=== PATIENT | female | born 1960 | race Hispanic/Latino ===

== ENCOUNTER 2017-12-14 06:04 | Inpatient (IN) | payer BC ==
--- NOTE | 2017-12-14 06:48 | ED PDOC ---
Arrival/HPI <Rafa Rodriguez - Last Filed: 12/14/17 06:46> - History of Present Illness Time/Duration: Prior to Arrival, 1 week <Dario Kent - Last Filed: 12/14/17 14:31> - General Chief Complaint: Shortness Of Breath Time Seen by Provider: 12/14/17 06:21 - History of Present Illness Narrative History of Present Illness (Text): 12/14/17 06:46 pt present c/o sob and asthma , seen by pmd in the week tx with steroid shot and pills, not getting better, no fver or chills or cp (Rafa Rodriguez) 12/14/17 14:20 Patient endorsed to me from Dr. Rodriguez at 0700. I reexamined patient at 0715 with daughter present. Patient complaints of cough and shortness of breath for one week. No improvement after inhalers or recently prescribed steroids and antibitoics. She reports generalized "lung pain" but no pleuritic pain. No leg pain or swelling. Reports shortness of breath with exertion. She denies any hemoptysis. Reports nasal congestion and headaches. No unsteadiness. No numbness or tingling. 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) - Pulmonary Hx Asthma: Yes - Endocrine/Metabolic Hx Hypothyroidism: Yes - Musculoskeletal/Rheumatological Hx Falls: No - Psychiatric Hx Depression: No Hx Emotional Abuse: No Hx Physical Abuse: No Hx Substance Use: No - Surgical History Hx Section: Yes - Suicidal Assessment Feels Threatened In Home Enviroment: No <Rafa Rodriguez - Last Filed: 12/14/17 06:46> Family/Social History - Physician Review Nursing Documentation Reviewed: Yes Family/Social History: No Known Family HX Smoking Status: Never Smoked Hx Alcohol Use: No Hx Substance Use: No Hx Substance Use Treatment: No <Rafa Rodriguez - Last Filed: 12/14/17 06:46> Family/Social History: CAD/[place] <Dario Kent - Last Filed: 12/14/17 14:31> Allergies/Home Meds <Rafa Rodriguez - Last Filed: 12/14/17 06:46> <Dario Kent - Last Filed: 12/14/17 14:31> Allergies/Adverse Reactions: Allergies Penicillins Allergy (Verified 12/14/17 06:30) RASH Home Medications: Home Meds Medication Instructions Recorded Confirmed Albuterol Sulfate [Proair Hfa] 0.09 mg IH Q4 PRN 07/19/13 07/19/13 Atorvastatin [Lipitor] 10 mg PO DAILY 12/14/17 12/14/17 Review of Systems - Physician Review All systems were reviewed & negative as marked: Yes - Review of Systems Constitutional: Normal Eyes: Normal ENT: Normal Respiratory: SOB, Wheezing Cardiovascular: absent: Chest Pain Gastrointestinal: Normal Genitourinary Female: Normal Musculoskeletal: Normal Skin: Normal Neurological: Normal Endocrine: Normal Hemo/Lymphatic: Normal Psychiatric: Normal <MichaelRafa - Last Filed: 12/14/17 06:46> - Review of Systems ENT: Rhinorrhea, Epistaxis, Sinus Congestion Cardiovascular: UMAÑA. absent: Palpitations, Calf Pain Gastrointestinal: absent: Appetite Changes Musculoskeletal: absent: Back Pain Neurological: absent: Dizziness, Focal Weakness Hemo/Lymphatic: absent: Easy Bleeding Psychiatric: absent: Depression <Dario Kent - Last Filed: 12/14/17 14:31> Physical Exam Vital Signs Reviewed: Yes Temperature: Afebrile Blood Pressure: Normal Pulse: Regular Respiratory Rate: Normal Appearance: Positive for: Well-Appearing, Non-Toxic, Comfortable Pain Distress: None Mental Status: Positive for: Alert and Oriented X 3 - Systems Exam Head: Present: Atraumatic, Normocephalic Pupils: Present: PERRL Extroacular Muscles: Present: EOMI Conjunctiva: Present: Normal Mouth: Present: Moist Mucous Membranes Neck: Present: Normal Range of Motion Respiratory/Chest: Present: Good Air Exchange, Wheezes. No: Respiratory Distress, Accessory Muscle Use Cardiovascular: Present: Regular Rate and Rhythm, Normal S1, S2. No: Murmurs Abdomen: No: Tenderness, Distention, Peritoneal Signs Back: Present: Normal Inspection Upper Extremity: Present: Normal Inspection. No: Cyanosis, Edema Lower Extremity: Present: Normal Inspection. No: Edema Neurological: Present: GCS=15, CN II-XII Intact, Speech Normal Skin: Present: Warm, Dry, Normal Color. 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 Initial EKG unremarkable. No calf pain or swelling. Nonsmoker. NO long travel or prolonged immobilization. Patient was administered single nebulizer from previous shift and NO wheezing noted on re-exam. She also has some nasal congestion with headache, not worse in life I feel there is a component of sinusitis although no fever or facial edema noted. Ddimer is unremarkable. CXR with no infiltrate of PTX. Initial cardiac enzymes unremarkable. Hypokalemia noted, I feel secondary to nebulizers she has been taking. Oral K ordered. Patient remains dyspneic, although lungs clear and not tachycardic or hypoxic. FOR FAILURE OF OUTPATIENT TREATMENT, patient will be admitted to telemetry observation bed. She reports strong family history of cardiac disease, although denies any known diagnosis for herself. CT chest ordered, there is lung nodule noted. Patient states she is aware of having a lung nodule and was advised to follow- up with repeat CT scan with daughter present. Patient's case d/w Dr. Mejia covering for PMD who accepts admission to Dr. Patel's service. 12/14/17 14:29 (Dario Kent) - Lab Interpretations Lab Results: 12/14/17 08:30 12/14/17 08:30 Lab Results 12/14/17 11:30: Urine Color Yellow, Urine Appearance Clear, Urine pH 6.5, Ur Specific Boykins 1.015, Urine Protein Negative, Urine Glucose (UA) Negative, Urine Ketones Negative, Urine Blood Negative, Urine Nitrate Negative, Urine Bilirubin Negative, Urine Urobilinogen 0.2, Ur Leukocyte Esterase Negative 12/14/17 08:30: Influenza Typ A,B (EIA) Negative for flu a/b 12/14/17 08:30: Sodium 145, Potassium 2.9 L* D, Chloride 104, Carbon Dioxide 25 , Anion Gap 19, BUN 16, Creatinine 0.7, Est GFR ( Amer) > 60, Est GFR ( Non-Af Amer) > 60, Random Glucose 114 H, Calcium 9.1, Total Bilirubin 0.3, AST 24, ALT 36, Alkaline Phosphatase 66, Lactate Dehydrogenase 368, Total Creatine Kinase 24 L, Troponin I < 0.01, NT-Pro-B Natriuret Pep 158, Total Protein 7.4, Albumin 4.5, Globulin 2.9, Albumin/Globulin Ratio 1.6 12/14/17 08:30: PT 1.2 L, INR 1.06, APTT 21.3 L, D-Dimer, Quantitative < 200 12/14/17 08:30: WBC 6.5, RBC 4.57, Hgb 12.9, Hct 37.6, MCV 82.3, MCH 28.2, MCHC 34.3, RDW 13.1, Plt Count 222, MPV 10.2, Gran % 54.9, Lymph % (Auto) 40.1 H, [place] % (Auto) 4.3, Eos % (Auto) 0.5 L, Baso % (Auto) 0.2, Gran # 3.57, Lymph # ( Auto) 2.6, [place] # (Auto) 0.3, Eos # (Auto) 0.0, Baso # (Auto) 0.01 - RAD Interpretation Radiology Orders: 12/14/17 07:24 CHEST PORTABLE [RAD] Stat 12/14/17 10:53 SINUSES W/O CONTRAST [CT] Stat 12/14/17 12:40 CHEST W/O CONTRAST [CT] Stat - EKG Interpretation EKG Interpretation (Text): 12/14/17 14:24 EKG at 0802 normal sinus rhythm rate of [address] elevations (Dario Kent) - Medication Orders Current Medication Orders: Potassium Chloride (K-Dur 20 Meq Er Tab) 20 meq PO STAT STA Stop: 12/14/17 14:31 Discontinued Medications Albuterol/Ipratropium (Duoneb 3 Mg/0.5 Mg (3 Ml) Ud) 3 ml IH Q15M BRAYDEN Stop: 12/14/17 07:31 Last Admin: 12/14/17 07:30 Dose: 3 ml Methylprednisolone (Solu-Medrol) 125 mg IVP STAT STA Stop: 12/14/17 09:12 Last Admin: 12/14/17 10:12 Dose: 125 mg IVP Administration Document 12/14/17 10:12 GMI (Rec: 12/14/17 10:12 GMI [id number]) Charges for Administration # of IVP Administrations 1 Potassium Chloride (K-Dur 20 Meq Er Tab) 40 meq PO STAT STA Stop: 12/14/17 09:35 Last Admin: 12/14/17 10:13 Dose: 40 meq Disposition/Present on Arrival - Present on Arrival History of DVT/PE: No History of Uncontrolled Diabetes: No Urinary Catheter: No History of Decub. Ulcer: No History Surgical Site Infection Following: None <Rafa Rodriguez - Last Filed: 12/14/17 06:46> - Present on Arrival Any Indicators Present on Arrival: No - Disposition Have Diagnosis and Disposition been Completed?: Yes Disposition Time: 12:00 Patient Plan: Admission, Observation, Telemetry <Dario Kent - Last Filed: 12/14/17 14:31> - Disposition Diagnosis: Dyspnea on exertion, Chest pain, Hypokalemia, Sinusitis Disposition: HOSPITALIZED Patient Problems: Current Active Problems Problem Status Onset Chest pain Acute Dyspnea on exertion Acute Hypokalemia Acute Condition: FAIR
[2017-12-14] MEDS: Albuterol-Ipratrop 3 mg / 0.5 (3 ml) UD IH SCH ×4 (07:00→20:00)
[2017-12-14 09:16] LABS: BASO # 0.01 K/mm3 (0.0-2.0); BASO % 0.2 % (0.0-3.0); EOS % 0.5 % (1.5-5.0); GRAN # 3.57 (1.4-6.5); GRAN % 54.9 % (50.0-68.0); HEMOGLOBIN 12.9 g/dL (12.0-16.0); LYMPH # 2.6 (1.2-3.4); LYMPH % 40.1 % (22.0-35.0); MEAN CELL VOLUME 82.3 fl (80.0-105.0); MEAN CORPUSCULAR HEMOGLOBIN 28.2 pg (25.0-35.0); MEAN CORPUSCULAR HGB CONC 34.3 g/dl (31.0-37.0); MEAN PLATELET VOLUME 10.2 fl (7.0-11.0); MONO # 0.3 (0.1-0.6); MONO % 4.3 % (1.0-6.0); RBC 4.57 10^6/uL (3.5-6.1); RED CELL DISTRIBUTION WIDTH 13.1 % (11.5-14.5); WHITE BLOOD COUNT 6.5 10^3/ul (4.5-11.0)
[2017-12-14 09:24] LABS: B-TYPE NATRIURETIC PEPTIDE 158 pg/mL (0-450); TROPONIN I < 0.01 ng/mL
[2017-12-14 09:33] LABS: ALB/GLOB RATIO 1.6 (1.1-1.8); ALBUMIN 4.5 g/dL (3.0-4.8); ALT/SGPT 36 U/L (7-56); AST/SGOT 24 U/L (14-36); BLOOD UREA NITROGEN 16 mg/dL (7-21); CALCIUM 9.1 mg/dL (8.4-10.5); GFR AFRICAN-AMERICAN > 60; GFR NON-AFRICAN AMERICAN > 60
[2017-12-14] MEDS ORDERED: Potassium Chloride 20 mEq ER Tab PO STA ×2 (09:34→14:30)
[2017-12-14 10:30] LABS: D DIMER < 200 ng/mL (0-243); INR 1.06 (0.93-1.08); PARTIAL THROMBOPLASTIN TIME 21.3 Seconds (25.1-36.5); PROTHROMBIN TIME 1.2 SECONDS (9.4-12.5)
[2017-12-14 11:55] LABS: PH,URINE 6.5 (4.7-8.0); URINE BILIRUBIN NEGATIVE (NEGATIVE); URINE BLOOD NEGATIVE (NEGATIVE); URINE GLUCOSE (UA) NEGATIVE (NEGATIVE); URINE LEUKOCYTE ESTERASE NEGATIVE Leu/uL (NEGATIVE); URINE PROTEIN NEGATIVE mg/dL (<30 mg/dL); URINE UROBILINOGEN 0.2 E.U./dL (<1 E.U./dL)
[2017-12-14 11:58] LABS: URINE APPEARANCE CLEAR (CLEAR); URINE COLOR YELLOW (YELLOW)
--- NOTE | 2017-12-14 12:04 | CT ---
PROCEDURE: CT SINUSES WITHOUT CONTRAST HISTORY: Headaches, facial pain COMPARISON: None TECHNIQUE: Contiguous axial CT images of the paranasal sinuses were obtained. Coronal and sagittal reformats were generated. Radiation dose: Total exam DLP = 754.62 mGy-cm. This CT exam was performed using one or more of the following dose reduction techniques: Automated exposure control, adjustment of the mA and/or kV according to patient size, and/or use of iterative reconstruction technique. FINDINGS: FRONTAL SINUSES: There is under pneumatization of the left aspect of the frontal sinus and to a lesser degree right aspect. Minimal mucosal thickening also present within the inferior margin right frontals sinus. ETHMOID SINUSES: Mild mucoperiosteal inflammatory ethmoid air complex. SPHENOID SINUSES: Minimal mucosal thickening within the sphenoid sinuses. MAXILLARY SINUSES: Mild mucosal thickening both maxillary antra. No fluid levels seen to suggest acute sinusitis. SINUS DRAINAGE: Right ostiomeatal complex occluded. Narrowing left ostiomeatal complex. . There appears to be occlusion of the frontal recesses. Sphenoid ethmoidal recesses also appear occluded. NASAL SEPTUM: No significant deviation. No destructive lesion. MASS: None. SKULL BASE: Unremarkable. TEMPORAL BONES: Middle ears and mastoid grossly unremarkable. OTHER FINDINGS: Orbits and contents unremarkable IMPRESSION: Mucoperiosteal inflammatory changes within all the paranasal sinuses associated with mucosal thickening which results in occlusion of the sinus drainage pathways as described. No fluid levels seen to suggest acute sinusitis. No bony destructive changes.
--- NOTE | 2017-12-14 13:42 | CARD ---
APPROVED REPORT EKG Measurement Heart [id number] <Conclusion> Normal sinus rhythm Normal ECG
--- NOTE | 2017-12-14 13:58 | CT ---
PROCEDURE: CT Chest without contrast HISTORY: cough, sob for one week COMPARISON: Correlation made with concurrent. Comparison also made with CT scan chest 07/19/2013. The the the the Radiograph obtained earlier same day. TECHNIQUE: Contiguous axial images were obtained through the chest without intravenous contrast enhancement. Sagittal and coronal reconstructions were performed. Radiation dose (DLP): 409.26 mGy-cm. This CT exam was performed using one or more of the following dose reduction techniques: Automated exposure control, adjustment of the mA and/or kV according to patient size, and/or use of iterative reconstruction technique. FINDINGS: LUNGS: Clear lungs. Visualized airway clear. Tiny approximately 1.8 mm subpleural nodule posterolateral aspect right upper lobe MEDIASTINUM: Unremarkable thoracic aorta. No aneurysm. Normal sized heart. Main pulmonary artery unremarkable. No vascular congestion. No lymphadenopathy. Small hiatal hernia. PLEURA: No pleural fluid. No pneumothorax. BONES: No fracture. No destructive lesion. UPPER ABDOMEN: Grossly unremarkable. OTHER FINDINGS: None. IMPRESSION: No acute infiltrates. No effusion or pneumothorax. . .Tiny 1.8 mm subpleural nodule right posterolateral upper lung zone. Follow-up of CT scan in 6 months could be performed.
[2017-12-14 14:37] VITALS: BMI 23.8
--- NOTE | 2017-12-14 15:56 | RAD ---
HISTORY: sob COMPARISON: Comparison chest 05/01/2017 FINDINGS: LUNGS: No active pulmonary disease. PLEURA: No significant pleural effusion identified, no pneumothorax apparent. CARDIOVASCULAR: Normal. OSSEOUS STRUCTURES: No significant abnormalities. VISUALIZED UPPER ABDOMEN: Normal. OTHER FINDINGS: None. IMPRESSION: No active disease.
[2017-12-15 07:34] LABS: ALB/GLOB RATIO 1.5 (1.1-1.8); ALBUMIN 4.3 g/dL (3.0-4.8); ALT/SGPT 32 U/L (7-56); AST/SGOT 21 U/L (14-36); BLOOD UREA NITROGEN 15 mg/dL (7-21); CALCIUM 9.1 mg/dL (8.4-10.5); GFR AFRICAN-AMERICAN > 60; GFR NON-AFRICAN AMERICAN > 60
[2017-12-15] MEDS: Albuterol-Ipratrop 3 mg / 0.5 (3 ml) UD IH SCH ×3 (07:34→20:10)
[2017-12-15] MEDS: Levothyroxine 75 MCG TAB PO SCH (08:25)
[2017-12-15] MEDS: MethylPREDNISolone 40 mg Vial IVP SCH ×2 (09:16→21:50)
[2017-12-15] MEDS: levoFLOXacin 500 mg in D5W 500 MG/100 ML BAG IVPB SCH (11:37)
[2017-12-15] MEDS: guaiFENesin DM 200 mg-20 mg/10 ml UD PO SCH ×3 (11:37→21:55)
[2017-12-15] MEDS: Potassium Chloride 20 MEQ in Dextrose 5%/0.45% NS 1,000 ML IV SCH (12:00)
--- NOTE | 2017-12-15 13:26 | HP ---
HISTORY OF PRESENT ILLNESS: The patient is a 57-year-old Turkish female who states she has not been feeling well for the last almost a week. She was very fatigued since last Friday. She has been sleeping a lot. So she called her primary care doctor, , who saw her on , gave her cortisone shot, gave her antibiotic that is doxycycline. She started taking medications with no significant relief. On Friday, she slept and felt so weak, could not get out of bed, so she asked her daughter to drive her to the emergency room for further evaluation. The patient states she is extremely fatigued. Complained of chest discomfort, especially hurts when she cough and she take deep breath. Denies any fever or chills. Does complain of cough and congestion with sinus pressure. PAST MEDICAL HISTORY: Significant for hypertension and hypothyroidism and recently diagnosed hyperlipidemia. ALLERGIES: SHE IS ALLERGIC TO PENICILLIN. MEDICATIONS AT HOME: She is on levothyroxine 75 mcg daily, Lipitor 10 mg daily and she takes ProAir 2 puffs four times a day. SOCIAL HISTORY: She states that she used to smoke off and on in high school, but quit after that. Denies alcohol use. REVIEW OF SYSTEMS: Significant for still has chest discomfort, retrosternal area. PHYSICAL EXAMINATION: GENERAL: She is awake, alert, oriented, communicative. VITAL SIGNS: She is afebrile, pulse 73, respirations 20, blood pressure 124/71. LUNGS: Bilateral few occasional expiratory rhonchi. HEART: S1 and S2 audible. ABDOMEN: Soft. Nontender. No rebound. No guarding. NEUROLOGICAL: The patient is awake, alert, oriented, communicative, ambulatory. LABORATORY EXAM: WBC 6.5, hemoglobin 12.9, hematocrit 37.6, platelet 222. PT 1.2, INR 1.06. Chemistry: Sodium 144, potassium 4, chloride 104, CO2 of 26, BUN 15, creatinine 0.6, blood sugar of 114. Urinalysis is unremarkable. Flu test is negative. Both blood cultures are negative. CT scan of the chest shows small nodule, 1.8 mm in right upper lung posteriorly. CT of the sinus shows thickening of paranasal sinuses. ASSESSMENT: 1. Extreme fatigue, failed outpatient treatment. 2. Pansinusitis with retrosternal chest pain. PLAN: We will start the patient on IV antibiotics. Start nebulizer treatment. Supplement her potassium. Start her on antihistamine and antipyretic. We will follow up in the next 24 hours. If the patient started to feel better, she will be discharged in the a.m. Dayne Patel MD
[2017-12-15 15:11] LABS: URINE BILIRUBIN NEGATIVE (NEGATIVE); URINE BLOOD NEGATIVE (NEGATIVE); URINE GLUCOSE (UA) NEGATIVE (NEGATIVE); URINE LEUKOCYTE ESTERASE NEGATIVE Leu/uL (NEGATIVE); URINE PROTEIN NEGATIVE mg/dL (<30 mg/dL); URINE UROBILINOGEN 0.2 E.U./dL (<1 E.U./dL)
[2017-12-15 15:12] LABS: URINE APPEARANCE CLEAR (CLEAR); URINE COLOR YELLOW (YELLOW)
--- NOTE | 2017-12-15 20:36 | CP.PCM.PN ---
Subjective - Date & Time of Evaluation Date of Evaluation: 12/15/17 Time of Evaluation: 20:32 - Subjective Subjective: Patient has very poor veins,needs iv access. Objective - Vital Signs/Intake and Output Vital Signs (last 24 hours): Temp Pulse Resp BP Pulse Ox 97.4 F L 71 18 107/64 98 12/15/17 18:00 12/15/17 18:00 12/15/17 18:00 12/15/17 18:00 12/15/17 18:00 - Medications Medications: Current Medications Albuterol/Ipratropium (Duoneb 3 Mg/0.5 Mg (3 Ml) Ud) 3 ml IH Q4 PRN PRN Reason: Wheezing Albuterol/Ipratropium (Duoneb 3 Mg/0.5 Mg (3 Ml) Ud) 3 ml IH 0800,1400,2000 [facility] Last Admin: 12/15/17 20:10 Dose: 3 ml Atorvastatin Calcium (Lipitor) 10 mg PO DIN [facility] Last Admin: 12/15/17 17:05 Dose: 10 mg Guaifenesin/Dextromethorphan (Robitussin Dm) 10 ml PO Q4H [facility] Last Admin: 12/15/17 17:05 Dose: 10 ml Levofloxacin/Dextrose (Levaquin 500mg) 500 mg in 100 mls @ 100 mls/hr IVPB DAILY [facility] PRN Reason: Protocol Last Admin: 12/15/17 11:37 Dose: 100 mls/hr Potassium Chloride 20 meq/ (Dextrose/Sodium Chloride) 1,010 mls @ 75 mls/hr IV .[id number] [facility] Last Admin: 12/15/17 12:00 Dose: 75 mls/hr Ibuprofen (Motrin Tab) 400 mg PO Q8H [facility] Last Admin: 12/15/17 11:39 Dose: Not Given Levothyroxine Sodium (Synthroid) 75 mcg PO ACB [facility] Last Admin: 12/15/17 08:25 Dose: 75 mcg Loratadine (Claritin) 10 mg PO DAILY [facility] Last Admin: 12/15/17 11:38 Dose: 10 mg Methylprednisolone (Solu-Medrol) 40 mg IVP Q12 [facility] Last Admin: 12/15/17 09:16 Dose: 40 mg Pantoprazole Sodium (Protonix Inj) 40 mg IVP DAILY [facility] Last Admin: 12/15/17 11:38 Dose: 40 mg - Labs Labs: 12/15/17 07:01 PT 1.2 SECONDS (9.4-12.5) L 12/14/17 08:30 INR 1.06 (0.93-1.08) 12/14/17 08:30 APTT 21.3 Seconds (25.1-36.5) L 12/14/17 08:30 - Constitutional Appears: No Acute Distress Assessment and Plan - Assessment and Plan (Free Text) Assessment: Poor venous access Plan: Hep lock inserted in the L hand. #24 angiocath used.
[2017-12-16] MEDS: Albuterol-Ipratrop 3 mg / 0.5 (3 ml) UD IH PRN (05:02)
[2017-12-16] MEDS: guaiFENesin DM 200 mg-20 mg/10 ml UD PO SCH ×6 (05:03→23:00)
[2017-12-16] MEDS: Albuterol-Ipratrop 3 mg / 0.5 (3 ml) UD IH SCH ×3 (07:32→19:46)
[2017-12-16] MEDS: levoFLOXacin 500 mg in D5W 500 MG/100 ML BAG IVPB SCH (10:04)
[2017-12-16] MEDS: MethylPREDNISolone 40 mg Vial IVP SCH ×2 (10:06→21:26)
[2017-12-16] MEDS: Levothyroxine 75 MCG TAB PO SCH (10:13)
[2017-12-16] MEDS: Potassium Chloride 20 MEQ in Dextrose 5%/0.45% NS 1,000 ML IV SCH (10:13)
[2017-12-16] MEDS ORDERED: Vancomycin 1gm in NS 250ml 1 GM/250 ML BAG IVPB SCH (18:30)
[2017-12-16] MEDS: Aztreonam 1 Gm in NS 100mL 100 ML IVPB SCH (21:26)
[2017-12-16] MEDS: Vancomycin 1gm in NS 250ml 1 GM/250 ML BAG IVPB SCH (22:59)
[2017-12-17] MEDS: guaiFENesin DM 200 mg-20 mg/10 ml UD PO SCH ×6 (02:31→23:52)
[2017-12-17] MEDS: Aztreonam 1 Gm in NS 100mL 100 ML IVPB SCH ×3 (05:37→21:26)
[2017-12-17] MEDS: Potassium Chloride 20 MEQ in Dextrose 5%/0.45% NS 1,000 ML IV SCH (05:38)
--- NOTE | 2017-12-17 05:51 | CON ---
DATE: 12/16/2017 LOCATION: The patient is seen earlier today in room 360, bed 2. CHIEF COMPLAINT: Cough and pulmonary symptoms x1 week duration. HISTORY OF PRESENT ILLNESS: This is a 57-year-old Tajik female with history of high cholesterol, history of hypothyroidism, arthritis and asthma, history of who has had PENICILLIN ALLERGY, who was treated as outpatient on doxycycline for the pulmonary symptoms without improvement. Patient states that is complaining of fatigue. She has low-grade fevers. No chills. She is coughing, the cough is nonproductive. She has occasional headaches and she has had profound weakness, and unable to function. Patient had been complaining of also shortness of breath and she was given steroids and antibiotics as outpatient with occasional chest pain with coughing. No abdominal pain. No diarrhea. No constipation. REVIEW OF SYSTEMS: Twelve-point review of systems is performed. PAST MEDICAL HISTORY: Significant for high cholesterol, hypothyroidism, arthritis and asthma. PAST SURGICAL HISTORY: Significant for . She has not been to [place] or out of [facility] for almost a year. ALLERGIES: SHE IS ALLERGIC TO PENICILLIN, SHE GETS RASH. MEDICATIONS: At home include Synthroid, Lipitor and the inhaler. PHYSICAL EXAMINATION: VITAL SIGNS: Temperature is 97, heart rate of 100, respiratory rate of 18 and blood pressure is 120/60. HEENT: Unremarkable. NECK: Supple. LUNGS: Have decreased breath sounds. HEART: Normal S1 and S2. ABDOMEN: Soft, nontender. LABORATORY EXAMINATION: Reveals white count of 6.5, hemoglobin is 12, platelets of 222. BUN is 16, creatinine is 0.6. Urinalysis is noted. Influenza is negative. Microbiology reveals the blood cultures are negative. Urine cultures are negative. CAT scan of sinuses is reviewed. Chest x-ray is negative. CAT scan of the chest is negative. Emergency room chart is reviewed. Dr. Patel's history and physical examination is reviewed. ASSESSMENT AND PLAN: A 57-year-old female, Tajik with high cholesterol, hypothyroidism, arthritis and asthma with pansinusitis and cough. THE PATIENT IS ALLERGIC TO PENICILLIN. Failed outpatient therapy. We will treat the patient on vancomycin, Azactam and Flagyl and order for human immunodeficiency virus, sputum culture, methicillin-resistant Staphylococcus aureus screen. We will also order a sed rate, C-reactive protein and we will order a MAMTA. We will make further recommendations upon availability of initial cultures and workup results. We will follow closely with you. Case discussed with Dr. Patel earlier today. Ángel Velasquez MD
[2017-12-17] MEDS: Albuterol-Ipratrop 3 mg / 0.5 (3 ml) UD IH PRN (06:23)
[2017-12-17 06:35] LABS: ALB/GLOB RATIO 1.4 (1.1-1.8); ALBUMIN 3.9 g/dL (3.0-4.8); ALT/SGPT 22 U/L (7-56); AST/SGOT 29 U/L (14-36); BLOOD UREA NITROGEN 14 mg/dL (7-21); GFR AFRICAN-AMERICAN > 60; GFR NON-AFRICAN AMERICAN > 60
[2017-12-17] MEDS: Albuterol-Ipratrop 3 mg / 0.5 (3 ml) UD IH SCH (07:49)
--- NOTE | 2017-12-17 08:11 | RAD ---
HISTORY: back pain COMPARISON: No prior. FINDINGS: BONES: Alignment maintained. No fracture. No destructive bony lesion appreciated. DISC SPACES: Moderate multilevel thoracic spondylosis. SOFT TISSUES: Normal. OTHER FINDINGS: None. IMPRESSION: Multilevel degenerative spondylosis without fracture or spondylolisthesis appreciable grossly.
[2017-12-17] MEDS: Levothyroxine 75 MCG TAB PO SCH (08:30)
[2017-12-17] MEDS: Pantoprazole 40 mg EC Tab PO SCH (08:30)
--- NOTE | 2017-12-17 08:49 | DS ---
HISTORY OF PRESENT ILLNESS: The patient is a 57-year-old seen and examined, seems to be doing a little better. No nausea, vomiting. No diarrhea. She came in tolerating. Minimal headache. PHYSICAL EXAMINATION: VITAL SIGNS: She is afebrile, pulse 61, respirations 20, blood pressure 131/70. LUNGS: Bilateral fair airflow. No rhonchi or crackle. HEART: S1 and S2 audible. ABDOMEN: Soft, nontender. No rebound, no guarding. NEUROLOGICAL: Patient is awake and alert, able to communicate, moves all extremities. No focal deficit. ASSESSMENT: 1. Viral syndrome with extreme fatigue. 2. Pansinusitis. 3. Noncardiac chest pain. 4. Nonspecific pulmonary nodule, outpatient treatment, steroid and antibiotics. PLAN: The patient seems to be doing a little better, continue current medications, will be discharged on oral medication and she will follow up with her PMD. Dayne Patel MD
[2017-12-17] MEDS: MethylPREDNISolone 40 mg Vial IVP SCH ×2 (09:42→21:27)
[2017-12-17 10:29] LABS: HDL CHOLESTEROL 46 mg/dL (29-60)
[2017-12-17 10:40] LABS: LDL CHOLESTEROL 107 mg/dL (0-129)
[2017-12-17] MEDS: Vancomycin 1gm in NS 250ml 1 GM/250 ML BAG IVPB SCH ×2 (13:08→23:52)
--- NOTE | 2017-12-17 13:46 | PN ---
DATE: 12/17/2017 SUBJECTIVE: The patient is 57 years old, seen and examined. Still complained of chest discomfort and chest pressure. She had episode of V tach with 8 beats. Complained of feeling extremely tired. No history of fever, no chills. No nausea or vomiting. No diarrhea. PHYSICAL EXAMINATION: VITAL SIGNS: She is afebrile, pulse 62, respirations 18, blood pressure 117/61. LUNGS: Bilateral fair airflow. No rhonchi or crackle. HEART: S1 and S2 audible. ABDOMEN: Soft. Nontender. No rebound. No guarding. NEUROLOGICAL: The patient is awake, alert, oriented, communicative. LABORATORY EXAM: WBC 6.5, hemoglobin 12.9, hematocrit 37.6, platelet of 222. Chemistry: Sodium 141, potassium 4.5, chloride 103, CO2 of 27, BUN 14, creatinine 0.7, blood sugar of 173. ASSESSMENT: 1. Viral syndrome. 2. Pansinusitis. 3. Cardiac arrhythmia. 4. Extreme fatigue. 5. Hypothyroidism. 6. Failed outpatient treatment. 7. Hyperlipidemia. PLAN: The patient will have cardiac workup done. Had echocardiogram done. Since she is still complaining of chest pain, she is scheduled to have stress test done tomorrow. Dayne Patel MD
[2017-12-17] MEDS: Levalbuterol 0.63 MG/3 ML Inhal Soln UD IH PRN ×2 (15:17→21:59)
--- NOTE | 2017-12-17 21:32 | CON ---
DATE: 12/17/2017 REASON FOR THE CONSULTATION AND FOLLOWUP: Eight beats of VT, admitted with acute exacerbation of COPD, upper respiratory tract infection, chest pain. BRIEF CLINICAL HISTORY: This is a 57-year-old female with past medical history significant for hypothyroidism and asthma started at later age, admitted with feeling very weak, lethargic. Denies any chest pain, but sometimes she gets right-sided chest discomfort after getting shortness of breath with asthma. PAST MEDICAL HISTORY: Significant for hypertension, hypothyroidism, recently diagnosed hyperlipidemia. ALLERGIES: PENICILLIN. CURRENT MEDICATIONS: Patient is taking levothyroxine 75 mcg daily and p.r.n., she takes albuterol and recently started Lipitor. Atorvastatin 10 mg daily, albuterol 0.09 mg daily. REVIEW OF SYSTEMS: As per HPI. FAMILY HISTORY: Significant for coronary artery disease. Mother has a bypass at the age of 60. SOCIAL HISTORY: Denies smoking. Denies any history of alcohol abuse. PHYSICAL EXAMINATION: GENERAL: Height of the patient is 5 feet 2 inches. Weight of the patient is 130 pounds. Body mass index 23.8 kg per meter square. VITAL SIGNS: Temperature is afebrile, heart rate 62, blood pressure 117/61. HEENT: PERRLA. Extraocular muscles intact. NECK: Supple. No carotid bruits or thyromegaly. CHEST: Clear to auscultation. HEART: S1 and S2 regular. ABDOMEN: Soft. EXTREMITIES: Clubbing and cyanosis negative. LABORATORY DATA: WBC 6.5 as on 12/14/2017, hemoglobin 12.9, hematocrit 37.6, platelet count 222. Chemistry shows sodium 141, potassium 4.5, chloride of 103, carbon dioxide 27, anion gap of 16, BUN 14, creatinine 0.7. Troponin on admission is 0.01, negative. IMPRESSION: A 57-year-old female with past medical history significant for hypothyroidism, asthma, hyperlipidemia recently diagnosed, and arthritis history, ALLERGIC TO PENICILLIN, admitted with upper respiratory tract infection and sinusitis did not respond to p.o. medication and admitted for IV antibiotics, last had 8 beats of ventricular tachycardia. Patient had a stress test a couple of years ago at [facility] and echo and being followed periodically till last followup and was told no significant coronary artery disease. Complaining of mild shortness of breath secondary to respiratory tract infection with some chest pain on talking a deep breath. RECOMMENDATION: Though chest pain is very atypical, given the multiple risk factors for coronary artery disease, we will schedule a stress test if the patient remain in the hospital tomorrow, otherwise we can do it as outpatient. We will do echo, also look TSH, lipid profile, hemoglobin A1c. The heart rate is as low, we will put low dose of beta kemar because patient is getting some Proventil treatment. We will change to Xopenex also to prevent tachyarrhythmia. We will keep n.p.o. after midnight for a stress test in the morning. If the patient gets discharged, we will do it as outpatient. We will follow with you. Thank you, Dr. Patel, for providing us the opportunity in taking care of the patient, Tiago Ramirez. Rowena Martínez MD
[2017-12-18] MEDS ORDERED: Levalbuterol 0.63 MG/3 ML Inhal Soln UD IH STA (01:16)
[2017-12-18] MEDS: Levalbuterol 0.63 MG/3 ML Inhal Soln UD IH PRN ×3 (01:22→13:51)
[2017-12-18] MEDS: guaiFENesin DM 200 mg-20 mg/10 ml UD PO SCH ×6 (03:30→23:48)
[2017-12-18] MEDS: Aztreonam 1 Gm in NS 100mL 100 ML IVPB SCH ×3 (05:36→21:45)
[2017-12-18] MEDS: Potassium Chloride 20 MEQ in Dextrose 5%/0.45% NS 1,000 ML IV SCH (06:27)
--- NOTE | 2017-12-18 08:19 | PN ---
DATE: 12/18/2017 SUBJECTIVE: The patient is seen earlier today in room 360, bed 2. She states she is feeling much better. She is awake and alert and asking regarding discharge. PHYSICAL EXAMINATION: VITAL SIGNS: Temperature is 98, blood pressure is 124/70, respiratory rate of 20. HEENT: Examination of HEENT is unremarkable. NECK: Supple. LUNGS: Have decreased breath sounds. HEART: Normal S1, S2. ABDOMEN: Soft, nontender. No rebound. No guarding. No masses. LABORATORY DATA: Laboratory examination reveals the patient's white count of 6.5, hemoglobin of 12, platelets of 225. Chemistries reveals a BUN of 14, creatinine of 0.7, magnesium is 2.3. Urinalysis is noted. Serology reveals HIV is negative. Influenza is negative. Microbiology reveals the blood and urine cultures are no growth. Review of orders reveals the patient to be on p.o. Flagyl, IV vancomycin and IV aztreonam. ASSESSMENT AND PLAN: A 57-year-old female, originally from [place] with high cholesterol and arthritis and asthma, admitted now with pansinusitis and with a penicillin allergy. Maybe able to use Bactrim 1 tablet double strength p.o. b.i.d. with p.o. Flagyl 500 mg p.o. every eight for 5 days upon discharge, Bactrim and Flagyl as the option. We will follow with you. Ángel Velasquez MD
[2017-12-18] MEDS: Pantoprazole 40 mg EC Tab PO SCH (08:28)
[2017-12-18] MEDS: Levothyroxine 75 MCG TAB PO SCH (08:28)
--- NOTE | 2017-12-18 08:59 | CP.PCM.PN ---
Subjective - Date & Time of Evaluation Date of Evaluation: 12/18/17 Time of Evaluation: 06:55 - Subjective Subjective: Awake, lying in bed, no distress, some chest discomfort/heaviness Reason for consultation and follow up: Cardiac evaluation for chest pain/ heaviness, 8 beats of ventricular tachycardia,admitted for acute exacerbation of COPD and upper respiratory tract infection,history of hypothyroidism,asthma, hyperlipidemia,arthritis. Seen and examined by me and Dr. Martínez Objective - Vital Signs/Intake and Output Vital Signs (last 24 hours): Temp Pulse Resp BP Pulse Ox 97.8 F 63 20 124/71 96 12/18/17 08:33 12/18/17 08:33 12/18/17 08:33 12/18/17 08:33 12/18/17 08:33 Intake and Output: 12/18/17 12/18/17 06:59 18:59 Intake Total 1330 Balance 1330 - Medications Medications: Current Medications Alprazolam (Xanax) 0.25 mg PO BID [facility] PRN Reason: Protocol Stop: 12/23/17 18:01 Last Admin: 12/17/17 18:16 Dose: 0.25 mg Atorvastatin Calcium (Lipitor) 10 mg PO DIN [facility] Last Admin: 12/17/17 18:16 Dose: 10 mg Guaifenesin/Dextromethorphan (Robitussin Dm) 10 ml PO Q4H [facility] Last Admin: 12/18/17 08:28 Dose: 10 ml Potassium Chloride 20 meq/ (Dextrose/Sodium Chloride) 1,010 mls @ 75 mls/hr IV .[id number] [facility] Last Admin: 12/18/17 06:27 Dose: 75 mls/hr Aztreonam (Azactam 1 Gm) 100 mls @ 100 mls/hr IVPB Q8 [facility] PRN Reason: Protocol Stop: 12/25/17 22:01 Last Admin: 12/18/17 05:36 Dose: 100 mls/hr Vancomycin HCl (Vancomycin 1gm) 1 gm in 250 mls @ 167 mls/hr IVPB 0000,1200 [facility] PRN Reason: Protocol Last Admin: 12/17/17 23:52 Dose: 167 mls/hr Ibuprofen (Motrin Tab) 400 mg PO Q8 [facility] Last Admin: 12/18/17 05:38 Dose: Not Given Levalbuterol HCl (Xopenex) 0.63 mg IH [id number] PRN PRN Reason: Shortness of Breath Last Admin: 12/18/17 08:00 Dose: 0.63 mg Levothyroxine Sodium (Synthroid) 75 mcg PO ACB [facility] Last Admin: 12/18/17 08:28 Dose: 75 mcg Loratadine (Claritin) 10 mg PO DAILY [facility] Last Admin: 12/17/17 09:42 Dose: 10 mg Methylprednisolone (Solu-Medrol) 30 mg IVP Q12 [facility] Last Admin: 12/17/17 21:27 Dose: 30 mg Metronidazole (Flagyl) 500 mg PO Q8 [facility] PRN Reason: Protocol Stop: 12/25/17 22:01 Last Admin: 12/18/17 05:37 Dose: 500 mg Pantoprazole Sodium (Protonix Ec Tab) 40 mg PO ACB [facility] Last Admin: 12/18/17 08:28 Dose: 40 mg - Labs Labs: 12/17/17 06:00 PT 1.2 SECONDS (9.4-12.5) L 12/14/17 08:30 INR 1.06 (0.93-1.08) 12/14/17 08:30 APTT 21.3 Seconds (25.1-36.5) L 12/14/17 08:30 - Constitutional Appears: No Acute Distress - Head Exam Head Exam: NORMOCEPHALIC - Eye Exam Eye Exam: Normal appearance - ENT Exam ENT Exam: Mucous Membranes Moist - Respiratory Exam Respiratory Exam: Decreased Breath Sounds, NORMAL BREATHING PATTERN - Cardiovascular Exam Cardiovascular Exam: REGULAR RHYTHM, +S1, +S2 Additional comments: mild chest heaviness/discomfort Telemetry NSR 70's - GI/Abdominal Exam GI & Abdominal Exam: Soft, Normal Bowel Sounds - Exam Additional comments: continent - Extremities Exam Extremities Exam: Normal Capillary Refill - Neurological Exam Neurological Exam: Alert, Awake, Oriented x3 - Psychiatric Exam Psychiatric exam: Normal Affect, Normal Mood - Skin Skin Exam: Normal Color, Warm Assessment and Plan - Assessment and Plan (Free Text) Assessment: A 57 year old female who came in to the ER due to progressive shortness of breath for almost a week. Admitted for exacerbation of COPD and upper respiratory tract infection, history of hypertension, hypothyroidism,asthma, hyperlipidemia, arthritis.Atypical chest pain. Plan: For stress test today Atypical chest pain Echo done, will follow up result Heart rate and blood pressure stable On Lipitor 10 mg daily, Synthroid 75 mcg daily ID on consult, on IV antibiotics Continue current medications Continue current treatment Will follow up Plan and treatment discussed with Dr. Martínez
[2017-12-18] MEDS: MethylPREDNISolone 40 mg Vial IVP SCH ×2 (09:37→21:53)
[2017-12-18] MEDS ORDERED: Aminophylline 25 mg/ml Inj ONE (10:18)
[2017-12-18] MEDS: Vancomycin 1gm in NS 250ml 1 GM/250 ML BAG IVPB SCH ×2 (11:57→23:01)
--- NOTE | 2017-12-18 13:23 | PN ---
DATE: 12/18/2017 SUBJECTIVE: The patient is 57 years old, still complained of chest discomfort. No fever. No chills. No nausea or vomiting. No diarrhea. Seen in Cardiology Department, just has the nuclear stress test. Now, going for exercise stress test. PHYSICAL EXAMINATION: VITAL SIGNS: She is afebrile, pulse 63, respirations 20, blood pressure 124/71. LUNGS: Bilateral fair airflow. No rhonchi or crackle. HEART: S1 and S2 audible. ABDOMEN: Soft. Nontender. No rebound. No guarding. NEUROLOGICAL: The patient is awake, alert, oriented, communicative, ambulatory. LABORATORY EXAM: is negative. Flu test is negative. Blood culture, urine cultures are negative. CT scan of the chest is unremarkable. Thoracic spine x-ray shows spondylolisthesis and multilevel degenerative disease. ASSESSMENT: 1. Chest pain. Etiology still unclear. 2. Upper respiratory tract infection along with pansinusitis. 3. Fatigue. 4. Hypothyroidism. 5. Hyperlipidemia. PLAN: The patient will have stress test done today. We will monitor that. Currently, she is on Azactam. The patient's oral intake is fine. I am going to discontinue her IV fluid. Cut down her steroid. We will reevaluate in the a.m. and make disposition plan. Dayne Patel MD
--- NOTE | 2017-12-18 14:27 | CARD ---
APPROVED REPORT EXAM: Two-dimensional and M-mode echocardiogram with Doppler and color Doppler. INDICATION Abnormal EKG/Arrhythmia Dyspnea Chest Pain LVFX 2D DIMENSIONS Left Atrium (2D)4.2 (1.6-4.0cm)IVSd0.9 (0.7-1.1cm) LVDd4.3 (3.9-5.9cm)PWd0.9 (0.7-1.1cm) LVDs2.7 (2.5-4.0cm)FS (%) 38.1 % LVEF (%)68.5 (>50%) M-Mode DIMENSIONS Aortic Root2.90 (2.2-3.7cm)Aortic Cusp Exc.1.70 (1.5-2.0cm) Aortic Valve AoV Peak Uwdsuefh116.0cm/Malcom Peak GR.8mmHg Mitral Valve MV E Srxayfca87.9cm/sMV A Lnypegwv96.0cm/sE/A ratio1.1 TDI Lateral E' Peak V10.80cm/sE/Lateral E'7.5E/Medial E'0.0 Pulmonary Valve PV Peak Ladizyuw80.9cm/sPV Peak Grad.3mmHg Tricuspid Valve TR Peak Yrsuqxkz221lh/sRAP [id number] Peak Gr.28mmHg [id number] LEFT VENTRICLE The left ventricle is normal size. There is normal left ventricular wall thickness. The left ventricular function is normal.EF-65-70 There is normal LV segmental wall motion. The left ventricular diastolic function is normal. No left ventricle thrombus noted on this study. There is no ventricular septal defect visualized. There is no left ventricular aneurysm. There is no mass noted in the left ventricle. RIGHT VENTRICLE The right ventricle is normal size. There is normal right ventricular wall thickness. The right ventricular systolic function is normal. ATRIA The left atrium is borderline dilated. The right atrium size is normal. The interatrial septum is intact with no evidence for an atrial septal defect. AORTIC VALVE The aortic valve is thickened but opens well. No aortic regurgitation is present. There is no aortic valvular stenosis. There is no aortic valvular vegetation. MITRAL VALVE The mitral valve is thickened but opens well. Mitral regurgitation is trace to mild. There is no mitral valve stenosis. There is no evidence of mitral valve prolapse. TRICUSPID VALVE The tricuspid valve leaflets are thickened , but open well. There is trace to mild tricuspid regurgitation.RVSP-38 mmof hg. There is no tricuspid valve stenosis. There is no tricuspid valve prolapse or vegetation. PULMONIC VALVE The pulmonary valve is normal in structure. There is trace pulmonic valvular regurgitation. There is no pulmonic valvular stenosis. GREAT VESSELS The aortic root is normal in size. The ascending aorta is normal in size. The pulmonary artery is normal. The IVC is normal in size and collapses >50% with inspiration. PERICARDIAL EFFUSION There is no pleural effusion. There is no pericardial effusion. <Conclusion> The left ventricle is normal size. There is normal left ventricular wall thickness. Mitral regurgitation is trace to mild. There is trace to mild tricuspid regurgitation.RVSP-38 mmof hg. There is trace pulmonic valvular regurgitation. The IVC is normal in size and collapses >50% with inspiration. There is no pericardial effusion.
[2017-12-18 17:31] VITALS: O2SAT 97
--- NOTE | 2017-12-18 23:55 | CARD ---
APPROVED REPORT Protocol: LEXISCAN Test Type: Lexiscan Sestamibi Stress Test Attending Physician: Dr. Rowena Bautista Referring Physician: Dr. Dayne Patel Test Indications: Chest Pain Height:5 ft 2 in Weight:130lbs Medications: Xanax, Lipitor, Azactam, Robitussin, Motrin, Xopenex, Synthroid, Claritin, Solu-medrol, Flagyl, Protonix, Vanco Medical History: 57 y/o female with a history of htn, high cholesterol, COPD, hypothyroid Target HR: 163 bpm Resting ECG: RSR. Resting Heart Rate: 62 bpm Resting Blood Pressure: 130/80mmHg Submaximum (85%): 139 bpm PROCEDURE Pharmacologic stress testing was performed using 0.4mg per 5ml of regadenoson given intravenously over 7-10 seconds. POST EXERCISE Reason for Termination: Protocol completed Target HR: No Max HR: 60 bpm 61% of Maximum Predicted HR: 163 bpm Exercise duration: 00:31 min:sec, 0 Stage Exercise capacity: 1.0METs Max Blood Pressure: 140/72mmHg Blood Pressure response to exercise: normal resting BP - appropriate response Heart Rate response to exercise: appropriate Chest Pain: No, none Angina index: 0 Arrhythmia: No, none ST Change: No, none Deviation: 0 mm INTERPRETATION Stress EKG Conclusion: IV LEXISCAN NUCLEAR STRESS TEST NEGATIVE FOR CHEST PAIN AND NEGATIVE FOR ST-T CHANGES. NUCLEAR SCAN REPORT PENDING. Signed by Rowena Bautista Electronically Approved: 12/18/2017 13:02:00 EXAM: Myocardial Perfusion REST/STRESS Stress Test Type: Pharmacologic Imaging Protocol Rest Spect myocardial perfusion imaging was performed in supine position 55 minutes following the injection of 10.2 mCi of Tc-99 Myoview. At peak stress, the patient was injected intravenously with 30.9mCi of Tc-99 tetrofosmin after an infusion time of 0 minutes and 10 seconds. Gated Stress Spect was performed 75 minutes after intravenous Tc-99 Myoview injection. The images were gated to evaluate regional wall motion and calculate ventricular ejection fraction.Images were reconstructed using backfilter projection method in short horizontal and verticle long axis. Spect slices were generated. LV Perfusion The quality of the study is good. The left ventricle is within normal limits in size. The right ventricle is unremarkable. The lung uptake is normal. The distribution of tracer reveals mildly and diffusely decreased perfusion involving anterior wall on the stress study. The remainder of the LV myocardium is unremarkable. The rest myocardial perfusion study shows no significant change. Wall Motion Wall motion study shows good contractility of the left ventricle. LVEF = 71%. Conclusion 1. Essentially normal SPECT myocardial perfusion study. 2. Fixed, anterior defect is most likely due to breast attenuation. 3. Normal gated wall motion of the left ventricle. 4. In comparison with the last study of 07/21/2013, there is no significant change.
[2017-12-19] MEDS: guaiFENesin DM 200 mg-20 mg/10 ml UD PO SCH ×3 (04:11→12:02)
[2017-12-19] MEDS: Aztreonam 1 Gm in NS 100mL 100 ML IVPB SCH ×2 (06:35→15:15)
--- NOTE | 2017-12-19 07:24 | CP.PCM.PN ---
Subjective - Date & Time of Evaluation Date of Evaluation: 12/19/17 Time of Evaluation: 06:20 - Subjective Subjective: No distress, wanted to go home, awake, lying in bed Reason for consultation and follow up: Cardiac evaluation for chest pain/ heaviness, 8 beats of ventricular tachycardia,admitted for acute exacerbation of COPD and upper respiratory tract infection,history of hypothyroidism,asthma, hyperlipidemia,arthritis. Seen and examined by me and Dr. Bautista Objective - Vital Signs/Intake and Output Vital Signs (last 24 hours): Temp Pulse Resp BP Pulse Ox 97.4 F L 63 18 120/68 97 12/18/17 17:31 12/19/17 06:00 12/18/17 17:31 12/18/17 17:31 12/18/17 17:31 Intake and Output: 12/19/17 12/19/17 06:59 18:59 Intake Total 840 Balance 840 - Medications Medications: Current Medications Alprazolam (Xanax) 0.25 mg PO BID [facility] PRN Reason: Protocol Stop: 12/23/17 18:01 Last Admin: 12/18/17 18:57 Dose: 0.25 mg Atenolol (Tenormin) 25 mg PO DAILY [facility] Atorvastatin Calcium (Lipitor) 10 mg PO DIN [facility] Last Admin: 12/18/17 16:53 Dose: 10 mg Guaifenesin/Dextromethorphan (Robitussin Dm) 10 ml PO Q4H [facility] Last Admin: 12/19/17 04:11 Dose: Not Given Aztreonam (Azactam 1 Gm) 100 mls @ 100 mls/hr IVPB Q8 [facility] PRN Reason: Protocol Stop: 12/25/17 22:01 Last Admin: 12/19/17 06:35 Dose: 100 mls/hr Vancomycin HCl (Vancomycin 1gm) 1 gm in 250 mls @ 167 mls/hr IVPB 0000,1200 [facility] PRN Reason: Protocol Last Admin: 12/18/17 23:01 Dose: 167 mls/hr Ibuprofen (Motrin Tab) 400 mg PO Q8 [facility] Last Admin: 12/19/17 06:37 Dose: 400 mg Levalbuterol HCl (Xopenex) 0.63 mg IH [id number] PRN PRN Reason: Shortness of Breath Last Admin: 12/18/17 13:51 Dose: 0.63 mg Levothyroxine Sodium (Synthroid) 75 mcg PO ACB [facility] Last Admin: 12/18/17 08:28 Dose: 75 mcg Loratadine (Claritin) 10 mg PO DAILY [facility] Last Admin: 12/18/17 09:35 Dose: Not Given Methylprednisolone (Solu-Medrol) 20 mg IVP Q12 [facility] Last Admin: 12/18/17 21:53 Dose: 20 mg Metronidazole (Flagyl) 500 mg PO Q8 [facility] PRN Reason: Protocol Stop: 12/25/17 22:01 Last Admin: 12/19/17 06:36 Dose: 500 mg Pantoprazole Sodium (Protonix Ec Tab) 40 mg PO ACB [facility] Last Admin: 12/18/17 08:28 Dose: 40 mg - Labs Labs: 12/17/17 06:00 PT 1.2 SECONDS (9.4-12.5) L 12/14/17 08:30 INR 1.06 (0.93-1.08) 12/14/17 08:30 APTT 21.3 Seconds (25.1-36.5) L 12/14/17 08:30 - Constitutional Appears: No Acute Distress - Head Exam Head Exam: NORMOCEPHALIC - Eye Exam Eye Exam: Normal appearance - ENT Exam ENT Exam: Mucous Membranes Moist - Respiratory Exam Respiratory Exam: Decreased Breath Sounds, Clear to Ausculation Bilateral, NORMAL BREATHING PATTERN - Cardiovascular Exam Cardiovascular Exam: +S1, +S2 - GI/Abdominal Exam GI & Abdominal Exam: Soft, Normal Bowel Sounds - Extremities Exam Extremities Exam: Normal Capillary Refill - Neurological Exam Neurological Exam: Alert, Awake, Oriented x3 - Psychiatric Exam Psychiatric exam: Normal Affect, Normal Mood - Skin Skin Exam: Normal Color, Warm Assessment and Plan - Assessment and Plan (Free Text) Assessment: A 57 year old female who came in to the ER due to progressive shortness of breath for almost a week. Admitted for exacerbation of COPD and upper respiratory tract infection, history of hypertension, hypothyroidism,asthma, hyperlipidemia, arthritis.Atypical chest pain. Plan: Stress done yesterday, normal result, LVEF-71% Echo done- LVEF 68%, trace MR/TR/OH, normal ventricles Heart rate and blood pressure stable No evidence of ischemia, no evidence of heart failure Troponin normal Chest discomfort maybe secondary to muskuloskeletal Motrin 600 mg PRN On Lipitor 10 mg daily, Synthroid 75 mcg daily ID on consult, on IV antibiotics Continue current medications Continue current treatment Discontinue telemetry Will follow up Plan and treatment discussed with Dr. Bautista
[2017-12-19 07:25] VITALS: BP 100/56; RESP 20; TEMP 97.9
[2017-12-19] MEDS: Levothyroxine 75 MCG TAB PO SCH (08:47)
[2017-12-19] MEDS: Pantoprazole 40 mg EC Tab PO SCH (08:47)
[2017-12-19] MEDS: MethylPREDNISolone 40 mg Vial IVP SCH (09:18)
[2017-12-19] MEDS: Levalbuterol 0.63 MG/3 ML Inhal Soln UD IH PRN (12:30)
[2017-12-19] MEDS: Vancomycin 1gm in NS 250ml 1 GM/250 ML BAG IVPB SCH (13:06)
[2017-12-19 15:28] VITALS: PULSE 74
--- NOTE | 2017-12-19 19:25 | PN ---
DATE: 12/19/2017 SUBJECTIVE: Patient is seen earlier this morning in room 360, bed 2. PHYSICAL EXAMINATION: VITAL SIGNS: Temperature is 97, blood pressure is 100/60, respiratory rate of 18. HEENT: Unremarkable. NECK: Supple. LUNGS: Have decreased breath sounds. HEART: Normal S1 and S2. ABDOMEN: Soft, nontender. LABORATORY DATA: Reveals a white count of 6.5, hemoglobin of 12, and platelets of 222. Chemistry reveals a BUN of 14, creatinine of 0.7. Urinalysis is noted. HIV is negative. Microbiology reveals cultures are negative. ASSESSMENT AND PLAN: This is a 57-year-old female who was seen earlier this morning, doing much better, originally from , history of arthritis, asthma, and high cholesterol and now with pansinusitis, sinopulmonary disease. Patient is advised to follow with her pulmonary doctor and continue workup for sinopulmonary disease. At this time, we will complete the sinusitis therapy with Bactrim and Flagyl up on discharge. Ángel Velasqeuz MD
--- NOTE | 2017-12-20 06:52 | DS ---
HISTORY OF PRESENT ILLNESS: The patient is 57 years old, seen and examined, lying in bed, seems to be comfortable. Still has some chest discomfort and soreness. No fever or chills. No nausea, vomiting. No diarrhea. PHYSICAL EXAMINATION: VITAL SIGNS: The patient is afebrile, pulse 70, respirations 20, blood pressure 100/56. LUNGS: Bilateral fair airflow. No rhonchi or crackle. HEART: S1, S2 audible. ABDOMEN: Soft, nontender, no rebound. No guarding. NEUROLOGIC: The patient is awake and alert, able to communicate. DIAGNOSTIC DATA: Her stress test is negative. Echocardiogram is unremarkable. She was complaining of mid back pain, so had x-ray of the thoracic spine done that shows spondylolisthesis. The CT scan of the chest is unremarkable. CT scan of the sinuses shows pansinusitis. PLAN: The patient will be discharged home today on Bactrim DS 1 tablet twice a day for 5 more days and Flagyl 500 at bedtime as recommended by ID and she will resume her medications. All the medications were ordered and she was given the report of her . She will follow with her PMD with a week. Dayne Patel MD
[2017-12-22 18:31] LABS: FHA IGA 26 IU/mL; FHA IGG 59 IU/mL; PT IGG 9 IU/mL
== END 2017-12-19 15:53 | disposition home or self-care (01) | DRG 191 ==
LOC: ED 06:04 → ERH 13:18 → 3RNO 16:04 → OBSVTOIN 12-15 15:14
PROVIDERS: ADMIT Internal Medicine; ATTEND Internal Medicine
DX: J44.1 Chronic obstructive pulmonary disease with (acute) exacerbation (principal); I47.2 Ventricular tachycardia; R07.89 Other chest pain; J06.9 Acute upper respiratory infection, unspecified; J32.4 Chronic pansinusitis; I10 Essential (primary) hypertension; E03.9 Hypothyroidism, unspecified; E78.00 Pure hypercholesterolemia, unspecified; E87.6 Hypokalemia; R91.1 Solitary pulmonary nodule; E78.5 Hyperlipidemia, unspecified; M19.90 Unspecified osteoarthritis, unspecified site; Z82.49 Family history of ischemic heart disease and other diseases of the circulatory system; Z88.0 Allergy status to penicillin